=== PATIENT | female | born 1990 | race American Indian/Alaskan Native ===

== ENCOUNTER 2018-04-12 12:43 | Emergency (ER) | payer OTHER ==
[2018-04-12 12:49] VITALS: BP 100/72; PULSE 100; TEMP 98.2; BMI 26.2
--- NOTE | 2018-04-12 12:52 | PDOC ---
History of Present Illness - General Chief Complaint: Abscess Boil Stated Complaint: ABSCESS ON BUTTOX Time Seen by Provider: 04/12/18 12:52 History Source: Patient - History of Present Illness Timing/Duration: reports: other Location: reports: genitalia Past History - Past Medical History Allergies/Adverse Reactions: Allergies Allergy/AdvReac Type Severity Reaction Status Date / Time No Known Allergies Allergy Verified 04/12/18 12:46 Home Medications: Ambulatory Orders Clindamycin [Cleocin -] 300 mg PO Q6HPO #28 capsule 04/12/18 CVA: No COPD: No - Surgical History Appendectomy: Yes - Suicide/Smoking/Psychosocial Hx Smoking History: Never smoked Information on smoking cessation initiated: No Hx Alcohol Use: No Drug/Substance Use Hx: No Substance Use Type: None Review of Systems - Review of Systems Constitutional: No: Chills, Fever Integumentary: Yes: Other (abscess) *Physical Exam - Vital Signs Last Vital Signs Temp Pulse Resp BP Pulse Ox 98.2 F 100 H 18 100/72 100 04/12/18 12:46 04/12/18 12:46 04/12/18 12:46 04/12/18 12:46 04/12/18 12:46 - Physical Exam General Appearance: Yes: Appropriately Dressed, Mild Distress HEENT: positive: Normal Voice Neck: positive: Supple Respiratory/Chest: negative: Respiratory Distress Integumentary: positive: Dry, Warm Neurologic: positive: Fully Oriented, Alert, Normal Mood/Affect Medical Decision Making - Medical Decision Making 04/12/18 13:19 28 yo F, no sig hx, here for I&D of L gluteal abscess to be performed by surgery. Pt was referred to Dr La by her PMD. No f/c See exam Gluteal abscess -pain control -surgery at bedside 04/12/18 13:32 Patient status post I&D by Dr. La, who states there was copious amount of purulent drainage. Packing placed. M.DLazaro requesting antibiotics with MRSA coverage. Wound cx sent. Tetanus updated. Patient to return in 2 days for wound check. Follow up information given to patient by Dr. La *DC/Admit/Observation/Transfer Diagnosis at time of Disposition: Abscess - Discharge Dispostion Disposition: HOME Condition at time of disposition: Improved - Prescriptions Prescriptions: Clindamycin [Cleocin -] 300 mg PO Q6HPO #28 capsule - Referrals - Patient Instructions Printed Discharge Instructions: DI for Incision and Drainage of a Skin Abscess Additional Instructions: Take antibiotics as directed Return to ER in 2 days for wound check/packing removal Return immediately for worsening of symptoms. Follow up with Dr La - Post Discharge Activity Forms/Work/School Notes: Back to Work
[2018-04-12] MEDS ORDERED: KETOROLAC TROMETHAMINE 30 MG/1 ML VIAL IM ONE (13:21)
[2018-04-12] MEDS ORDERED: DIPHTH,PERTUSS(ACELL),TET 0.5 ML DISP.SYRIN IM ONE (13:39)
--- NOTE | 2018-04-12 13:41 | CONSULT ---
Consult Consult Specialty:: Surgery Referred by:: Dr.Radhakrishnan Ngo Reason for Consultation:: Abscess in left buttock. Pain in left buttock x 4 days. - History of Present Illness Chief Complaint: Pain in left buttock. - History Source History Provided By: Patient Limitations to Obtaining History: No Limitations - Alcohol/Substance Use Hx Alcohol Use: No - Smoking History Smoking history: Never smoked Home Medications - Allergies Allergies/Adverse Reactions: Allergies Allergy/AdvReac Type Severity Reaction Status Date / Time No Known Allergies Allergy Verified 04/12/18 12:46 - Home Medications Home Medications: Ambulatory Orders Clindamycin [Cleocin -] 300 mg PO Q6HPO #28 capsule 04/12/18 Physical Exam Vital Signs: Vital Signs Temperature 98.2 F 04/12/18 12:46 Pulse Rate 100 H 04/12/18 12:46 Respiratory Rate 18 04/12/18 12:46 Blood Pressure 100/72 04/12/18 12:46 O2 Sat by Pulse Oximetry (%) 100 04/12/18 12:46 Musculoskeletal: Yes: Other (Swelling on medial aspect left buttock , severely tender, indurated. ? Abscess with cellulitis left buttock.) Problem List - Problems (1) Abscess of left buttock Code(s): L02.31 - CUTANEOUS ABSCESS OF BUTTOCK Assessment/Plan Abscess left buttock. Plan : Incision and drainage of abscess of left buttock. Patient is informed and explained of her condition , and treatment plan , of incision and drainage , and antibiotics.
--- NOTE | 2018-04-12 13:49 | PROC ---
Procedure Note Procedure: Procedure : Incision and drainage of abscess left buttock. Date 04/12/2018.1:30 pm Anesthesia: Local with 1% lidocaine infiltration. Procedure: After informing the patient , the site was identified. Assisted by nurse Kimberly The area was cleansed with betadine 1% lidocaine was infiltrated into the skin , and subcutaneous tissue, around the area of infiltation. With a no. 11 blade a 2cm. incision was made over the indurated area, and about 30 ml of pus was evacuated. A swab was sent for culture and antibiotic sensitivity. The abscess cavity was irrigated with saline and hydrogen peroxide. The cavity was packed with iodoform packing and gauze. She tolertaed the procedure well. Injection Torodol was given intramucularly.
== END 2018-04-12 14:01 | disposition home or self-care (01) ==
LOC: JERFT 12:43
PROC: 0J990ZZ Drainage of Buttock Subcutaneous Tissue and Fascia, Open Approach (ICD-10-PCS; principal; 2018-04-12)
PROC: 3E0234Z Introduction of Serum, Toxoid and Vaccine into Muscle, Percutaneous Approach (ICD-10-PCS; 2018-04-12)
PROC: 3E0233Z Introduction of Anti-inflammatory into Muscle, Percutaneous Approach (ICD-10-PCS; 2018-04-12)
DX: L02.31 Cutaneous abscess of buttock (principal)
CPT/HCPCS: 87070; 87076; 87077; 87205; 90715; 99282-25

== ENCOUNTER 2018-04-14 16:56 | Emergency (ER) | payer OTHER ==
[2018-04-14 17:01] VITALS: BP 106/76; PULSE 90; TEMP 98.2; BMI 26.2
--- NOTE | 2018-04-14 17:24 | PDOC ---
Suture Removal/Wound Check HPI - History of Present Illness Chief Complaint: Revisit,Wound Recheck Stated Complaint: WOUNDCHECK Time Seen by Provider: 04/14/18 17:09 History Source: Yes: Patient Exam Limitations: Yes: No Limitations Treated at: [facility] Date of Last ED visit: 04/12/18 - Previous ED Treatment Type of procedure performed on last visit: Yes: I&D of Abscess Tetanus Immunization: Yes: Up to Date Antibiotics Prescribed: Yes - Onset of Previous Treatment Comment:: 04/14/18 17:26 pt here for wound check dressing change s/p abscess drained 2 days ago by Past History - Past Medical History Allergies/Adverse Reactions: Allergies Allergy/AdvReac Type Severity Reaction Status Date / Time No Known Allergies Allergy Verified 04/14/18 17:01 Home Medications: Ambulatory Orders NK [No Known Home Medication] 04/14/18 CVA: No COPD: No - Surgical History Appendectomy: Yes - Suicide/Smoking/Psychosocial Hx Smoking History: Never smoked Hx Alcohol Use: No Drug/Substance Use Hx: No Substance Use Type: None Suture Removal/Wound Check PE - Physical Exam Comments: 04/14/18 17:27 no fever no chills pt has minimal pain and tenderness scant drainage to right gluteal fold packing in place with serous sangenous drainage 04/14/18 17:28 *Review of Systems - Review of Systems Able to Perform ROS?: Yes Constitutional: No: Symptoms Reported HEENTM: No: Symptoms Reported Respiratory: No: Symptoms reported Cardiac (ROS): No: Symptoms Reported ABD/GI: No: Symptoms Reported : No: Symptoms Reported Musculoskeletal: No: Symptoms Reported Integumentary: Yes: Symptoms Reported *Physical Exam - Vital Signs Last Vital Signs Temp Pulse Resp BP Pulse Ox 98.2 F 90 18 106/76 99 04/14/18 16:59 04/14/18 16:59 04/14/18 16:59 04/14/18 16:59 04/14/18 16:59 - Physical Exam General Appearance: Yes: Nourished, Appropriately Dressed Procedures - Additional Procedures Progress: 04/14/18 17:32 dressing changed Medical Decision Making - Medical Decision Making 04/14/18 17:28 wound check dressing changed s/o abscess drained pt has no fever no chills, taking antibiotics has apt with surgeon tomorrow *DC/Admit/Observation/Transfer Diagnosis at time of Disposition: Visit for wound check - Discharge Dispostion Disposition: HOME Condition at time of disposition: Good - Referrals - Patient Instructions Additional Instructions: follow with for follow up tomorrow as planned keep the area clean and dry - Post Discharge Activity
== END 2018-04-14 17:33 | disposition home or self-care (01) ==
LOC: JERFT 16:56
DX: Z48.817 Encounter for surgical aftercare following surgery on the skin and subcutaneous tissue (principal); Z48.01 Encounter for change or removal of surgical wound dressing
CPT/HCPCS: 99281-25